=== PATIENT | male | born 1975 | race Caucasian/White ===

== ENCOUNTER 2017-03-20 14:04 | Emergency (ER) | payer SELFPAY ==
[2017-03-20 14:47] VITALS: RESP 14; TEMP 96.4
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
== END 2017-03-20 15:26 | disposition left against medical advice (07) ==
LOC: ER 14:04
DX: S06.0X1A Concussion with loss of consciousness of 30 minutes or less, initial encounter (principal); R51 Headache; R11.2 Nausea with vomiting, unspecified; W17.89XA Other fall from one level to another, initial encounter; Y93.18 Activity, surfing, windsurfing and boogie boarding; Y92.828 Other wilderness area as the place of occurrence of the external cause
CPT/HCPCS: 99282